=== PATIENT | male | born 1970 | race Caucasian/White ===

== ENCOUNTER 2017-11-18 20:45 | Emergency (ER) | payer SELFPAY ==
[2017-11-18] MEDS ORDERED: Lorazepam 2 MG/ML VIAL ONE ×2 (21:06→21:07)
[2017-11-18 21:15] LABS: #Eosinphils 0.1 thou/uL (0.0-0.7); #Monocytes 0.8 thou/uL (0.11-0.59); #Neutrophils 7.9 thou/uL (1.40-6.50); %Basophils 0.4 % (0.0-1.0); %Eosinophils 0.9 % (0.0-10.0); %Lymphocytes 10.1 % (21.0-51.0); %Monocytes 8.2 % (0.0-10.0); %Neutrophils 80.5 % (42.0-75.0); Hemoglobin 14.4 g/dL (14.0-18.0); Mean Corpuscular HGB CONC 34.9 g/dL (32.0-36.0); Mean Corpuscular Hemoglobin 32.1 pg (27.0-31.0); Mean Platelet Volume 6.3 fL (7.4-10.4); Platelet Count 335 thou/uL (130-400); RBC Distribution Width 11.3 % (11.5-14.5); Red Blood Cell (RBC) Count 4.48 mill/uL (4.70-6.10); White Blood Cell (WBC) Count 9.8 thou/uL (4.8-10.8)
--- NOTE | 2017-11-18 21:22 | RAD ---
PORTABLE CHEST: 11/18/17 HISTORY: Chest pain. HISTORY: Chest pain. Lung garza are clear. No infiltrate or vascular congestion. Heart size is normal. IMPRESSION: No acute process. POS: [facility]
[2017-11-18 21:30] LABS: Acetaminophen Less than 6.0 mcg/mL (10.0-30.0); Alcohol Less than 10 mg/dL (Less than 10); CK (CPK) 308 U/L (30-200); Salicylate Less than 8.0 mg/dL (15.0-30.0)
[2017-11-18] MEDS ORDERED: Clotrimazole 1 % Cream 30 GM TUBE TOP SCH (21:30)
[2017-11-18 21:32] LABS: ALT (SGPT) 16 U/L (8-55); AST (SGOT) 21 U/L (5-34); Albumin 4.4 g/dL (3.5-5.0); Alkaline Phosphatase 88 U/L (40-150); Anion Gap 19 mmol/L (10-20); BUN (Urea Nitrogen) 13 mg/dL (8.9-20.6); Bilirubin, Total 1.1 mg/dL (0.2-1.2); Calc. Creatinine Clearance 0 mL/min (70-130); Calcium 9.6 mg/dL (7.8-10.44); Carbon Dioxide 21 mmol/L (22-29); Chloride 97 mmol/L (98-107); Estimated GFR-MDRD 56; Globulin 2.8 g/dL (2.4-3.5); Glucose 128 mg/dL (70-105); Lipase 15 U/L (8-78); Magnesium 2.5 mg/dL (1.6-2.6); Potassium 3.4 mmol/L (3.5-5.1); Protein, Total 7.2 g/dL (6.0-8.3); Sodium 134 mmol/L (136-145)
[2017-11-18 21:35] LABS: CKMB 4.6 ng/mL (0-6.6); Troponin I Less than 0.010 ng/mL (< 0.028)
[2017-11-18] MEDS ORDERED: OLANZapine 5 MG TAB ONE (22:10)
[2017-11-18 22:33] LABS: Bilirubin Negative (Negative); Blood, Urine Negative (Negative); Clarity CLOUDY (Clear); Glucose, Urine (Dipstick) Negative (Negative); Leukocyte Negative (Negative); Nitrite Negative (Negative); Protein, Urine (Dipstick) Trace mg/dL (Neg-Trace); Specific Gravity, Urine 1.014 (1.002-1.036); Urobilinogen 0.2 mg/dL (0.2-1.0)
[2017-11-18 22:40] LABS: Amphetamine Detected (NotDetected); Barbiturates Screen Not Detected (NotDetected); Benzodiazepine Screen Not Detected (NotDetected); Cocaine Metabolite Screen Not Detected (NotDetected); Medtox Control Line Valid? VALID (VALID); Medtox Reader # READER 4; Methadone Not Detected (NotDetected); Methamphetamine Detected (NotDetected); Opiate Screen Not Detected (NotDetected); Oxycodone Screen Not Detected (NotDetected); Phencyclidine (PCP) Not Detected (NotDetected); THC/Cannabinoid Screen Not Detected (NotDetected); Tricyclic Screen Not Detected (NotDetected)
--- NOTE | 2017-11-25 15:14 | EKG ---
Test Reason : DRUG ABUSE Blood Pressure : / mmHG Vent. Rate : 100 BPM Atrial Rate : 100 BPM P-R Int : 140 ms QRS Dur : 098 ms QT Int : 344 ms P-R-T Axes : 054 051 065 degrees QTc Int : 443 ms Normal sinus rhythm Normal ECG Confirmed by KAYLAH HAND ([id number]), instructional design technologist ENRICO LUI ([id number] on 11/25/2017 3:14:09 PM Referred By: Confirmed By:KAYLAH HAND
== END 2017-11-18 23:06 | disposition home or self-care (01) ==
LOC: ERS 20:45
DX: S60.812A Abrasion of left wrist, initial encounter (principal); S60.811A Abrasion of right wrist, initial encounter; T43.625A Adverse effect of amphetamines, initial encounter; R45.851 Suicidal ideations; F31.9 Bipolar disorder, unspecified; X58.XXXA Exposure to other specified factors, initial encounter
CPT/HCPCS: 71045; 80053; 80306; 80307; 81003; 82553; 83690; 83735; 84443; 84484; 85025; 93005; 94760; 96361; 96374; J2060